=== PATIENT | female | born 1990 | race Caucasian/White ===

== ENCOUNTER 2018-10-14 09:06 | Day surgery (SDC) | payer OTHER ==
[~2018-10-14 09:06] MED LIST: LIDOCAINE HCL 1% MPF 30 SOL ONE; PROPOFOL 500 MG/50 ML EMU IV ONE
[2018-10-14 10:04] VITALS: RESP 20
[2018-10-14 10:24] VITALS: BP 97/59; PULSE 88; TEMP 98.1; O2SAT 98
== END 2018-10-14 10:35 | disposition home or self-care (01) | DRG 951 ==
LOC: SURG 09:06
PROVIDERS: ATTEND Surgery
DX: Z12.11 Encounter for screening for malignant neoplasm of colon (principal); Z80.0 Family history of malignant neoplasm of digestive organs
CPT/HCPCS: J2001; J2704